=== PATIENT | female | born 1995 | race Caucasian/White ===

== ENCOUNTER 2023-05-30 23:01 | Emergency (ER) | payer OTHER ==
[~2023-05-30] VITALS: Ht 160 cm; Wt 81.6 kg
[2023-05-30 23:38] VITALS: BP_SYST 138; PULSE 76; RESP 17; TEMP 98.1; O2SAT 100
[2023-05-31] MEDS ORDERED: NACL 0.9% 1,000 ML IV ONE (00:30)
[2023-05-31] MEDS ORDERED: MORPHINE 4 MG INJ. 4 MG/ML VIAL IVP ONE ×2 (00:30→02:00)
[2023-05-31] MEDS ORDERED: ONDANSETRON HCL 4 MG/2 ML VIAL IVP ONE (00:30)
[2023-05-31 00:53] LABS: BILIRUBIN,URINE 1+ (NEGATIVE); BLOOD, URINE NEGATIVE (NEGATIVE); CLARITY/URINE SL CLOUDY (CLEAR); COLOR,URINE ORANGE (YELLOW); GLUCOSE,URINE TRACE (NEGATIVE); KETONES,URINE TRACE (NEGATIVE); LEUKOCYTE ESTERASE ,URINE NEGATIVE (NEGATIVE); PH,URINE 5.5 (5.0-8.0); PROTEIN URINE 1+ (NEGATIVE)
[2023-05-31 00:59] LABS: BASOPHILS % (AUTO) 0.6 % (0.0-2.0); EOSINOPHILS # (AUTO) 0.3 K/uL (0.0-0.4); EOSINOPHILS % (AUTO) 4.1 % (0.0-4.0); HEMATOCRIT 38.5 % (36-48); HEMOGLOBIN 12.7 g/dL (12.0-16.0); LYMPHOCYTES # (AUTO) 3.6 K/uL (1.0-5.5); LYMPHOCYTES % (AUTO) 49.5 % (20.5-51.5); MEAN CORPUSCULAR HEMOGLOBIN 30 pg (27-31); MEAN CORPUSCULAR HGB CONC 33 % (32-36); MEAN CORPUSCULAR VOLUME 92 fL (79.0-98.0); MONOCYTES # (AUTO) 0.5 K/uL (0.0-1.0); NEUTROPHILS # (AUTO) 2.9 K/uL (1.8-7.7); NEUTROPHILS % (AUTO) 38.8 % (40.0-70.0); PLATELET COUNT (AUTO) 295 K/uL (130-430); RED BLOOD CELL COUNT(AUTO) 4.17 MIL/uL (4.2-6.2); RED CELL DISTRIBUTION WIDTH 12.8 % (9.0-15.0); WHITE BLOOD COUNT (AUTO) 7.4 K/uL (4.8-10.8)
[2023-05-31 01:05] LABS: NITRITE, URINE NEGATIVE (NEGATIVE)
[2023-05-31 01:06] LABS: RBC,URINE 0-3 /HPF (0-3); WBC,URINE 0-3 /HPF (0-3)
[2023-05-31 01:07] LABS: BACTERIA,URINE None Seen /HPF (None Seen)
[2023-05-31 01:19] LABS: CREATININE 0.74 mg/dL (0.55-1.30); POTASSIUM 3.4 mmol/L (3.5-5.1)
[2023-05-31 01:24] LABS: ALBUMIN 3.7 g/dL (3.4-4.8); TOTAL BILIRUBIN 0.4 mg/dL (0.0-1.0); TOTAL PROTEIN, SERUM 7.7 g/dL (6.4-8.3)
[2023-05-31 01:54] VITALS: BP_SYST 135; PULSE 72; RESP 15; TEMP 98; O2SAT 99
[2023-05-31] MEDS ORDERED: NAPR-690 PO (02:17)
== END 2023-05-31 02:49 | disposition home or self-care (01) ==
LOC: SED 23:01
DX: N83.202 Unspecified ovarian cyst, left side (principal); R10.32 Left lower quadrant pain; Z88.2 Allergy status to sulfonamides; Z88.5 Allergy status to narcotic agent; Z88.6 Allergy status to analgesic agent; Z79.899 Other long term (current) drug therapy
CPT/HCPCS: 99285; 80053; 81000; 85025; 87040; 87210; 36415; 83605; 96374; 76830; 76857; 96361; 96375; 96376; J2405; J2270; J7030

== ENCOUNTER 2024-06-13 00:48 | Inpatient (IN) | payer BC, OTHER ==
[~2024-06-13] VITALS: Ht 160 cm; Wt 86.2 kg
[~2024-06-13 00:48] MED LIST: NAPR-690 PO
[2024-06-13 00:59] VITALS: BP_SYST 120; PULSE 89; RESP 16; TEMP 98.2; O2SAT 98
[2024-06-13] MEDS: MORPHINE 4 MG INJ. 4 MG/ML VIAL IVP ONE ×3 (01:20→06:08)
[2024-06-13] MEDS: NACL 0.9% 1,000 ML IV ONE (01:29)
[2024-06-13 02:18] LABS: BASOPHILS % (AUTO) 0.3 % (0.0-2.0); EOSINOPHILS # (AUTO) 0.2 K/uL (0.0-0.4); EOSINOPHILS % (AUTO) 1.4 % (0.0-4.0); HEMATOCRIT 36.7 % (36-48); HEMOGLOBIN 12.3 g/dL (12.0-16.0); LYMPHOCYTES # (AUTO) 2.4 K/uL (1.0-5.5); LYMPHOCYTES % (AUTO) 19.3 % (20.5-51.5); MEAN CORPUSCULAR HEMOGLOBIN 31 pg (27-31); MEAN CORPUSCULAR HGB CONC 34 % (32-36); MEAN CORPUSCULAR VOLUME 91 fL (79.0-98.0); MONOCYTES # (AUTO) 0.7 K/uL (0.0-1.0); MONOCYTES % (AUTO) 5.5 % (1.7-9.3); NEUTROPHILS # (AUTO) 9.2 K/uL (1.8-7.7); NEUTROPHILS % (AUTO) 73.5 % (40.0-70.0); PLATELET COUNT (AUTO) 327 K/uL (130-430); RED BLOOD CELL COUNT(AUTO) 4.03 MIL/uL (4.2-6.2); RED CELL DISTRIBUTION WIDTH 13.6 % (9.0-15.0); WHITE BLOOD COUNT (AUTO) 12.5 K/uL (4.8-10.8)
[2024-06-13 02:29] LABS: ALBUMIN 3.7 g/dL (3.4-4.8); CALCIUM 9.2 mg/dL (8.4-11.0); CREATININE 0.83 mg/dL (0.55-1.30); POTASSIUM 3.5 mmol/L (3.5-5.1); TOTAL BILIRUBIN 0.3 mg/dL (0.0-1.0); TOTAL PROTEIN, SERUM 7.6 g/dL (6.4-8.3)
[2024-06-13] MEDS ORDERED: MORPHINE 4 MG INJ. 4 MG/ML VIAL ONE (05:46)
[2024-06-13] MEDS: NACL 0.9% 1,000 ML IV SCH (05:48)
[2024-06-13] MEDS: MORPHINE 4 MG INJ. 4 MG/ML VIAL IVP PRN (05:48)
[2024-06-13] MEDS: ONDANSETRON HCL 4 MG/2 ML VIAL IVP PRN (05:50)
[2024-06-13 08:03] LABS: BILIRUBIN,URINE 1+ (NEGATIVE); BLOOD, URINE 2+ (NEGATIVE); CLARITY/URINE CLEAR (CLEAR); COLOR,URINE GREEN (YELLOW); GLUCOSE,URINE NEGATIVE (NEGATIVE); KETONES,URINE TRACE (NEGATIVE); LEUKOCYTE ESTERASE ,URINE TRACE (NEGATIVE); NITRITE, URINE NEGATIVE (NEGATIVE); PH,URINE 6.5 (5.0-8.0); PROTEIN URINE TRACE (NEGATIVE); UROBILINOGEN,URINE 0.2 (0.2-1.0)
[2024-06-13 08:38] LABS: BACTERIA,URINE MODERATE /HPF (None Seen); URINE AMORPHOUS URATE 2+ /HPF (None Seen)
[2024-06-13 08:50] LABS: HCG,QUAL RESULT NEGATIVE (NEGATIVE)
[2024-06-13 09:20] VITALS: BP_SYST 104; PULSE 110; RESP 16; TEMP 99.1; O2SAT 95
[2024-06-13] MEDS ORDERED: IBUPROFEN 400 MG TABLET PO PRN (11:45)
[2024-06-13 12:52] VITALS: BP_SYST 114; PULSE 100; RESP 18; TEMP 98.4; O2SAT 94
[2024-06-13] MEDS: cefTRIAXone 1 GM in D5W 50 ML IV SCH (13:31)
[2024-06-13] MEDS: HYDROmorphone 1 MG/ML INJ. CARTRIDGE IVP ONE (14:08)
[2024-06-13] MEDS: metroNIDAZOLE 500 mg/NS 100 ML IV SCH (16:09)
[2024-06-13 16:25] VITALS: BP_SYST 122; PULSE 99; RESP 18; TEMP 98; O2SAT 95
[2024-06-13 20:00] VITALS: BP_SYST 116; PULSE 92; RESP 17; TEMP 98.7; O2SAT 96
[2024-06-13] MEDS: HYDROmorphone 1 MG/ML INJ. CARTRIDGE IVP PRN (20:15)
[2024-06-13] MEDS: DOCUSATE SODIUM 100 MG CAPSULE PO SCH (21:12)
[2024-06-13] MEDS: DOXYCYCLINE HYCLATE 100 MG in D5W 100 ML IV SCH (21:12)
[2024-06-14] VITALS: BP_SYST 109; PULSE 93; RESP 18; TEMP 98.5; O2SAT 98
[2024-06-14 05:43] LABS: BASOPHILS % (AUTO) 0.1 % (0.0-2.0); EOSINOPHILS # (AUTO) 0.1 K/uL (0.0-0.4); EOSINOPHILS % (AUTO) 1.2 % (0.0-4.0); HEMATOCRIT 34.9 % (36-48); HEMOGLOBIN 11.8 g/dL (12.0-16.0); LYMPHOCYTES # (AUTO) 1.3 K/uL (1.0-5.5); LYMPHOCYTES % (AUTO) 12.2 % (20.5-51.5); MEAN CORPUSCULAR HEMOGLOBIN 31 pg (27-31); MEAN CORPUSCULAR HGB CONC 34 % (32-36); MEAN CORPUSCULAR VOLUME 91 fL (79.0-98.0); MONOCYTES % (AUTO) 9.5 % (1.7-9.3); NEUTROPHILS # (AUTO) 8.3 K/uL (1.8-7.7); PLATELET COUNT (AUTO) 288 K/uL (130-430); RED BLOOD CELL COUNT(AUTO) 3.84 MIL/uL (4.2-6.2); RED CELL DISTRIBUTION WIDTH 13.5 % (9.0-15.0); WHITE BLOOD COUNT (AUTO) 10.8 K/uL (4.8-10.8)
[2024-06-14 07:10] LABS: ERYTHROCYTE SEDIMENTATION RATE 49 MM/HR (0-20)
[2024-06-14 07:15] LABS: ALBUMIN 2.7 g/dL (3.4-4.8); CALCIUM 8.4 mg/dL (8.4-11.0); CREATININE 0.71 mg/dL (0.55-1.30); POTASSIUM 3.6 mmol/L (3.5-5.1); TOTAL BILIRUBIN 0.6 mg/dL (0.0-1.0); TOTAL PROTEIN, SERUM 6.7 g/dL (6.4-8.3)
[2024-06-14 08:00] VITALS: BP_SYST 113; PULSE 91; RESP 18; TEMP 98.3; O2SAT 96
[2024-06-14 12:05] VITALS: BP_SYST 115; PULSE 88; RESP 18; TEMP 98.1; O2SAT 96
[2024-06-14 16:02] VITALS: BP_SYST 112; PULSE 85; RESP 18; TEMP 98.7; O2SAT 97
[2024-06-14 20:00] VITALS: BP_SYST 119; PULSE 96; RESP 18; TEMP 98; O2SAT 100; O2SAT 96
[2024-06-14] MEDS: ZOLPIDEM TARTRATE 5 MG TABLET PO PRN (22:51)
[2024-06-15 00:27] VITALS: BP_SYST 110; PULSE 100; RESP 20; TEMP 97.8
[2024-06-15] MEDS: MORPHINE 2 MG/ML INJ. SYRINGE IVP PRN (04:58)
[2024-06-15 07:49] LABS: INR 1.1 (0.8-1.2)
[2024-06-15 08:05] VITALS: BP_SYST 113; PULSE 94; RESP 18; TEMP 98.8; O2SAT 98
[2024-06-15] MEDS: HYDROmorphone 2 MG/ML VIAL ONE (09:19)
[2024-06-15] MEDS ORDERED: LR 1,000 ML IV.SOLN IV ONE (09:30)
[2024-06-15] MEDS ORDERED: NEOSTIGMINE METHYLSULFATE 1 MG/ML, 10 ML VIAL ONE (09:30)
[2024-06-15] MEDS ORDERED: DEXAMETHASONE SOD PHOSPHATE 4 MG/ML VIAL ONE (09:30)
[2024-06-15] MEDS ORDERED: SUCCINYLCHOLINE CHLORIDE 20 MG/ML(QUELICIN) ONE (09:30)
[2024-06-15] MEDS ORDERED: NS IRRIG SOLN 1000 ML IR ONE (09:30)
[2024-06-15] MEDS ORDERED: ROCURONIUM BROMIDE 10 MG/ML (ZEMURON) ONE (09:30)
[2024-06-15] MEDS ORDERED: ONDANSETRON HCL 4 MG/2 ML VIAL ONE (09:30)
[2024-06-15] MEDS ORDERED: GLYCOPYRROLATE 0.2 MG/ML VIAL ONE (09:30)
[2024-06-15] MEDS ORDERED: WATER FOR IRRIGATION,STERILE 1,000 ML IRRIG.SOLN IR ONE (09:30)
[2024-06-15] MEDS ORDERED: SEVOFLURANE 15 MIN GAS INH ONE (09:30)
[2024-06-15] MEDS ORDERED: BUPIVACAINE /PF 0.25% 30 ML VIAL INJ ONE (09:30)
[2024-06-15] MEDS ORDERED: PROPOFOL 200MG/ 20ML VIAL (DIPRIVAN) IV ONE (09:30)
[2024-06-15] MEDS ORDERED: METOCLOPRAMIDE HCL 10 MG/2 ML VIAL ONE (09:30)
[2024-06-15 09:50] VITALS: O2SAT 99
[2024-06-15] MEDS ORDERED: NALOXONE HCL 0.4 MG/ML AMP (NARCAN) IVP PRN ×2 (11:00)
[2024-06-15] MEDS ORDERED: KETOROLAC TROMETHAMINE 30 MG VIAL IVP PRN (11:00)
[2024-06-15] MEDS ORDERED: METOCLOPRAMIDE HCL 10 MG/2 ML VIAL IVP PRN (11:00)
[2024-06-15] MEDS ORDERED: ONDANSETRON HCL 4 MG/2 ML VIAL IVP PRN (11:00)
[2024-06-15] MEDS ORDERED: HYDROmorphone 1 MG/ML INJ. CARTRIDGE IVP PRN (11:00)
[2024-06-15] MEDS: HYDROmorphone 1 MG/ML INJ. CARTRIDGE IVP PRN (12:15)
[2024-06-15] MEDS: HYDROmorphone 1 MG/ML INJ. CARTRIDGE ONE (13:45)
[2024-06-15 16:06] VITALS: BP_SYST 113; BP_SYST 137; PULSE 95; RESP 16; TEMP 97.7; O2SAT 98
[2024-06-15 20:00] VITALS: BP_SYST 111; PULSE 84; RESP 18; TEMP 97.8; O2SAT 96
[2024-06-15 21:34] LABS: BASOPHILS % (AUTO) 0.2 % (0.0-2.0); HEMATOCRIT 34.5 % (36-48); HEMOGLOBIN 11.8 g/dL (12.0-16.0); LYMPHOCYTES # (AUTO) 0.3 K/uL (1.0-5.5); LYMPHOCYTES % (AUTO) 2.5 % (20.5-51.5); MEAN CORPUSCULAR HEMOGLOBIN 31 pg (27-31); MEAN CORPUSCULAR HGB CONC 34 % (32-36); MEAN CORPUSCULAR VOLUME 90 fL (79.0-98.0); MONOCYTES # (AUTO) 0.4 K/uL (0.0-1.0); NEUTROPHILS % (AUTO) 94.3 % (40.0-70.0); PLATELET COUNT (AUTO) 335 K/uL (130-430); RED BLOOD CELL COUNT(AUTO) 3.82 MIL/uL (4.2-6.2); RED CELL DISTRIBUTION WIDTH 13.5 % (9.0-15.0); WHITE BLOOD COUNT (AUTO) 13.7 K/uL (4.8-10.8)
[2024-06-15 21:50] LABS: ALBUMIN 2.6 g/dL (3.4-4.8); CALCIUM 8.8 mg/dL (8.4-11.0); CREATININE 0.68 mg/dL (0.55-1.30); POTASSIUM 4.6 mmol/L (3.5-5.1); TOTAL BILIRUBIN 0.4 mg/dL (0.0-1.0); TOTAL PROTEIN, SERUM 7.1 g/dL (6.4-8.3)
[2024-06-16] VITALS: BP_SYST 100; PULSE 88; RESP 18; TEMP 97.7; O2SAT 95
[2024-06-16 07:50] LABS: BASOPHILS % (AUTO) 0.1 % (0.0-2.0); EOSINOPHILS % (AUTO) 0.1 % (0.0-4.0); HEMATOCRIT 34.2 % (36-48); HEMOGLOBIN 11.5 g/dL (12.0-16.0); LYMPHOCYTES # (AUTO) 1.2 K/uL (1.0-5.5); LYMPHOCYTES % (AUTO) 9.6 % (20.5-51.5); MEAN CORPUSCULAR HEMOGLOBIN 30 pg (27-31); MEAN CORPUSCULAR HGB CONC 34 % (32-36); MEAN CORPUSCULAR VOLUME 91 fL (79.0-98.0); MONOCYTES # (AUTO) 0.8 K/uL (0.0-1.0); NEUTROPHILS # (AUTO) 10.8 K/uL (1.8-7.7); NEUTROPHILS % (AUTO) 84.2 % (40.0-70.0); PLATELET COUNT (AUTO) 356 K/uL (130-430); RED BLOOD CELL COUNT(AUTO) 3.77 MIL/uL (4.2-6.2); RED CELL DISTRIBUTION WIDTH 13.4 % (9.0-15.0); WHITE BLOOD COUNT (AUTO) 12.8 K/uL (4.8-10.8)
[2024-06-16 08:00] VITALS: BP_SYST 116; PULSE 71; RESP 18; TEMP 97.5; O2SAT 95
[2024-06-16 08:03] LABS: ALBUMIN 2.5 g/dL (3.4-4.8); CREATININE 0.57 mg/dL (0.55-1.30); POTASSIUM 3.8 mmol/L (3.5-5.1); TOTAL BILIRUBIN 0.3 mg/dL (0.0-1.0)
[2024-06-16 15:19] VITALS: BP_SYST 115; PULSE 75; RESP 16; TEMP 96.8; O2SAT 98
[2024-06-16 20:00] VITALS: BP_SYST 112; BP_SYST 84; PULSE 84; RESP 18; TEMP 99; O2SAT 98
[2024-06-16] MEDS: AMOXICILLIN/CLAVULANATE POTASSIUM 500 MG TABLET PO SCH (22:23)
[2024-06-16] MEDS: HYDROcodone/ACETAMIN 5-325 MG TAB (NORCO/ VICODIN) PO PRN (22:32)
[2024-06-17] VITALS: BP_SYST 118; PULSE 78; RESP 18; TEMP 98.8; O2SAT 98
[2024-06-17 05:00] VITALS: BP_SYST 90; PULSE 66; RESP 18; TEMP 97.8; O2SAT 100
[2024-06-17 07:37] LABS: BASOPHILS % (AUTO) 0.3 % (0.0-2.0); EOSINOPHILS # (AUTO) 0.2 K/uL (0.0-0.4); EOSINOPHILS % (AUTO) 2.4 % (0.0-4.0); HEMATOCRIT 31.8 % (36-48); HEMOGLOBIN 10.7 g/dL (12.0-16.0); LYMPHOCYTES % (AUTO) 37.7 % (20.5-51.5); MEAN CORPUSCULAR HEMOGLOBIN 30 pg (27-31); MEAN CORPUSCULAR HGB CONC 34 % (32-36); MEAN CORPUSCULAR VOLUME 91 fL (79.0-98.0); MONOCYTES # (AUTO) 0.6 K/uL (0.0-1.0); MONOCYTES % (AUTO) 7.4 % (1.7-9.3); NEUTROPHILS # (AUTO) 4.1 K/uL (1.8-7.7); NEUTROPHILS % (AUTO) 52.2 % (40.0-70.0); PLATELET COUNT (AUTO) 355 K/uL (130-430); RED BLOOD CELL COUNT(AUTO) 3.52 MIL/uL (4.2-6.2); RED CELL DISTRIBUTION WIDTH 13.6 % (9.0-15.0); WHITE BLOOD COUNT (AUTO) 7.9 K/uL (4.8-10.8)
[2024-06-17 08:00] VITALS: BP_SYST 111; PULSE 68; RESP 18; TEMP 98.6; O2SAT 97
[2024-06-17 08:09] LABS: ALBUMIN 2.5 g/dL (3.4-4.8); CALCIUM 8.6 mg/dL (8.4-11.0); CREATININE 0.67 mg/dL (0.55-1.30); POTASSIUM 3.4 mmol/L (3.5-5.1); TOTAL BILIRUBIN 0.3 mg/dL (0.0-1.0); TOTAL PROTEIN, SERUM 6.5 g/dL (6.4-8.3)
[2024-06-17] MEDS ORDERED: HYDR-3919 PO (10:39)
[2024-06-17] MEDS ORDERED: AMOX-423 PO (10:39)
[2024-06-17] MEDS ORDERED: IBUP-1968 PO (10:53)
[2024-06-17 12:21] VITALS: BP_SYST 115; PULSE 71; RESP 18; TEMP 98.5; O2SAT 97
[2024-06-17] MEDS ORDERED: ACET-2634 PO (12:59)
== END 2024-06-17 16:45 | disposition home or self-care (01) | DRG 855 ==
LOC: SED 00:48 → STU 05:22 → SMU 13:22
PROVIDERS: ADMIT Internal Medicine; ATTEND Internal Medicine
PROC: 0UCF4ZZ Extirpation of Matter from Cul-de-sac, Percutaneous Endoscopic Approach (ICD-10-PCS; principal; 2024-06-15 09:49)
DX: A41.9 Sepsis, unspecified organism (principal); N73.9 Female pelvic inflammatory disease, unspecified; E66.9 Obesity, unspecified; D64.9 Anemia, unspecified; R74.01 Elevation of levels of liver transaminase levels; Z88.5 Allergy status to narcotic agent; Z88.2 Allergy status to sulfonamides; Z88.8 Allergy status to other drugs, medicaments and biological substances; Z79.899 Other long term (current) drug therapy; Z68.33 Body mass index [BMI] 33.0-33.9, adult
CPT/HCPCS: 36415; 76830; 76857; 80053; 81000; 81001; 81015; 83690; 84702; 84703; 85025; 85610; 85651; 85730; 86886; 86900; 86901; 87070; 87075; 87081; 87086; 87186; 88304; 99285; C1727; J0330; J0696; J1100; J1170; J2270; J2405; J2704; J2710; J2765; J3490; J7060; J7120